=== PATIENT | female | born 1955 | race Caucasian/White ===

== ENCOUNTER 2017-02-09 22:48 | Emergency (ER) | payer BC ==
--- NOTE | ~2017-02-09 | CR63 ---
[facility] A Service of [facility] & [facility] / [facility] RADIOLOGY TEXT RESULTS PATIENT: SNOW SHORT LOCATION: CFTX : 51 UNIT #: [id number] AGE: [address]: Amarilis Santiago SEX: F ORDER DR: [id number] [facility]. [place], [place] [address] [id number] MR#: [id number] Acc #: [id number] NAME: SNOW SHORT. : 1955 SEX: F STUDY DATE/TIME: 02/09/2017 23:02 UNIT: [facility] ROOM: STUDY DESCRIPTION: CR Chest 2 View Attending Physician: Amarilis Santiago Pa-C Ordering Physician: Amarilis Santiago Pa-C Primary Care Physician: Jai Yu M.D. MEDICAL IMAGING REPORT This report is preliminary unless electronic signature is present EXAM PA and lateral chest date 02/09/2017 at 23:02 HISTORY 61-year-old female with complaints of cough and shortness breath for 1 week. COMPARISON PA and lateral chest 05/23/2016 FINDINGS There is severe thoracic scoliosis, and there is band-like opacity within the left lower lobe which may represent changes of atelectasis or pneumonia, slightly more pronounced than on previous examination. The right lung is thought to be clear. Heart size is stable. Mild calcification is seen within the aortic knob. Surgical clips are seen in the vicinity of the esophagogastric junction. No definite pleural effusion or pneumothorax is seen. IMPRESSION 1. Suspected atelectasis or infiltrate in the left lower lobe. The findings at this location appear new or more pronounced when compared to the 05/23/2016 examination 2. Severe scoliosis. Dictated by... Rina Soriano M.D. THIS IS AN ELECTRONICALLY VERIFIED REPORT Rina Soriano M.D. at 02/10/2017 6:02 AM AEB/paul TD: 02/10/2017 01:56 [facility] A Service of [facility] & [facility] / [facility] RADIOLOGY TEXT RESULTS PATIENT: SNOW SHORT LOCATION: [facility] : 51 UNIT #: [id number] AGE: [address]: Amarilis Santiago SEX: F ORDER DR: KALEN #: [id number] MEDICAL IMAGING REPORT Page 1 of 1 COPY
[~2017-02-09 22:48] MED LIST: BENAZEPRIL PO; CIPRO PO; DIFLUCAN PO; HCTZ PO; HYDROCHLOROTHIA25 MG PO; KEFLEX PO; LEVAQUIN PO; LOPRESSOR PO; PREDNISONE PO; PYRIDIUM PO
[2017-02-09 23:06] LABS: INFLUENZA A NEG (NEG); INFLUENZA B NEG (NEG)
[2017-02-09 23:18] LABS: BASOPHIL% 0.4 % (0-2.5); DIFF IND NO; EOSINOPHIL# 0.1 X10e3 (0-0.7); EOSINOPHIL% 1.4 % (0.0-7.0); HEMATOCRIT 40.2 % (35.0-45.0); HEMOGLOBIN 13.4 gm/dL (12.0-16.0); LYMPHOCYTE# 1.6 X10e3 (1.0-3.5); LYMPHOCYTE% 17.2 % (17.0-45.0); MEAN CELL VOLUME 82.7 FL (83-96); MEAN CORPUSCULAR HEMOGLOBIN 27.5 PG (28-34); MEAN CORPUSCULAR HGB CONC 33.3 g/dL (30-36); MEAN PLATELET VOLUME 7.3 FL (6.5-11.5); MONOCYTE# 0.9 X10e3 (0-1.0); NEUTROPHIL# 6.5 X10e3 (1.5-7.1); PLATELET COUNT 480 X10e3 (140-420); RED BLOOD COUNT 4.86 X10e (3.90-5.30); RED CELL DISTRIBUTION WIDTH 13.9 % (11.0-15.5); WHITE BLOOD COUNT 9.2 X10e3 (4.0-10.5)
[2017-02-09 23:52] LABS: ALBUMIN SERUM 3.8 g/dL (3.5-5.0); BILIRUBIN, DIRECT 0.1 mg/dL (0.0-0.2); BILIRUBIN,INDIRECT 0.6 mg/dL (0.0-0.9); BILIRUBIN,TOTAL 0.7 mg/dL (0.2-2.0); CALCIUM SERUM 9.1 mg/dL (8.4-10.2); CREATININE SERUM 1.2 mg/dL (0.6-1.4); GLOM FILT RATE Estimated 48.1 mL/min (>60); PROTEIN TOTAL SERUM 8.4 g/dL (6.0-8.3)
[2017-02-10 00:13] LABS: URINE SOURCE CLEAN CATCH
[2017-02-10 00:18] LABS: URINE APPEARANCE CLOUDY; URINE BLOOD NEG (NEG); URINE COLOR DK YELLOW; URINE GLUCOSE NEG (NEG); URINE KETONE TRACE (NEG); URINE LEUKOCYTE ESTERASE 2+ (NEG); URINE NITRATE NEG (NEG); URINE PROTEIN 1+ (NEG); URINE SPECIFIC GRAVITY 1.023 (1.003-1.035)
[2017-02-10 00:21] LABS: CULTURE INDICATED? YES; URINE BACTERIA AUWI NEG (NEGATIVE); URINE SQUAMOUS EPITHELIAL CELL OCC /[HPF]
[2017-02-10 00:26] LABS: URINE BILIRUBIN NEG (NEG)
[2017-02-10 00:30] LABS: URINE GRANULAR CAST 0-2 /[HPF]
== END 2017-02-10 01:15 | disposition home or self-care (01) ==
LOC: CFTX 22:48
PROVIDERS: Physician Assistant Medical
DX: J18.1 Lobar pneumonia, unspecified organism (principal); I10 Essential (primary) hypertension
CPT/HCPCS: 36415; 71020; 80048; 80076; 81003; 85025; 87086; 87804; 99283